=== PATIENT | male | born 1960 | race Caucasian/White ===

== ENCOUNTER 2018-11-29 12:30 | Emergency (ER) | payer SELFPAY ==
[~2018-11-29] VITALS: Ht 180.3 cm; Wt 98.8 kg
[~2018-11-29 12:30] MED LIST: ACID CONTROLLER10 MG PO; ASPIRIN81 MG PO; FLEXERIL PO; FUROSEMIDE20 MG PO; ISORDIL10 MG PO; LISINOPRIL5 MG PO; METOPROL TAR25 M1 PO; METOPROL TAR25 MG PO; NAPROSYN500 MG PO; NO HOME MEDS; PLAVIX75 MG PO; SIMVASTATIN40 MG OR
[2018-11-29 13:18] VITALS: BP 130/70
[2018-11-29] MEDS ORDERED: FLOXIN OTIC0.3 % AS (13:22)
== END 2018-11-29 14:05 | disposition home or self-care (01) | DRG 156 ==
LOC: ED 12:30
PROC: 3E1B78Z Irrigation of Ear using Irrigating Substance, Via Natural or Artificial Opening (ICD-10-PCS; principal; 2018-11-29)
DX: T16.2XXA Foreign body in left ear, initial encounter (principal); X58.XXXA Exposure to other specified factors, initial encounter